=== PATIENT | female | born 1985 | race Asian ===

== ENCOUNTER → 2018-08-04 | Outpatient (CLI) | payer OTHER ==
--- NOTE | 2018-08-04 17:44 | REP ---
LEFT SHOULDER, THREE VIEWS: HISTORY: Pain. There is no acute fracture or dislocation. The joint spaces are normal in appearance. IMPRESSION: There is no acute fracture or dislocation. Electronically Signed by Sky Garrido MD 08/04/2018 05:49 P
== END ==
LOC: M LRY 16:49
PROVIDERS: ATTEND Nurse Practitioner Family
DX: M25.512 Pain in left shoulder (principal)
CPT/HCPCS: 73030; G0463

== ENCOUNTER → 2019-03-18 | Outpatient (CLI) | payer OTHER ==
[2019-03-18 18:59] LABS: BASO % 0.5 % (0.0-1.0); EOS # 0.4 10^3/uL (0.0-0.50); EOS % 6.6 % (0.0-3.0); HEMATOCRIT 38.4 % (36.0-47.0); HEMOGLOBIN 12.4 g/dl (12.0-15.5); LYMPH # 2.1 10^3/uL (1.5-4.5); LYMPH % 35.6 % (24.0-44.0); MEAN CORPUSCULAR HEMOGLOBIN 30.2 pg (27.0-33.0); MEAN CORPUSCULAR HGB CONC 32.3 g/dl (32.0-36.5); MEAN CORPUSCULAR VOLUME 93.7 fl (80.0-96.0); MONO # 0.3 10^3/uL (0.0-0.8); MONO % 4.9 % (0.0-5.0); NEUTROPHILS # 3.1 10^3/uL (1.8-7.7); NEUTROPHILS % 52.2 % (36.0-66.0); PLATELET COUNT, AUTOMATED 194 10^3/uL (150-450); WHITE BLOOD COUNT 5.9 10^3/uL (4.0-10.0)
[2019-03-18 19:14] LABS: ALT/SGPT 19 U/L (12-78); BILIRUBIN,TOTAL 0.5 MG/DL (0.2-1.0); BLOOD UREA NITROGEN 10 MG/DL (7-18); CALCIUM LEVEL 8.9 MG/DL (8.5-10.1); CARBON DIOXIDE LEVEL 29 MEQ/L (21-32); CHLORIDE LEVEL 107 MEQ/L (98-107); CREATININE FOR GFR 0.67 MG/DL (0.55-1.30); FERRITIN 25 NG/ML (8-252); GLOMERULAR FILTRATION RATE > 60.0 (>60); GLUCOSE, FASTING 84 MG/DL (70-100); IRON (FE) 96 UG/DL (50-170); PERCENT SATURATION 31.9 % (13.2-45.0); POTASSIUM SERUM 4.1 MEQ/L (3.5-5.1); SODIUM LEVEL 143 MEQ/L (136-145); THYROID STIMULATING HORMONE 0.659 uIU/ML (0.358-3.740); TOTAL IRON BINDING CAPACITY 301 UG/DL (250-450); TOTAL PROTEIN 7.3 GM/DL (6.4-8.2)
[2019-03-29 00:06] LABS: DQ2(DQ1A 0501/0505,DQB1 02XX) Negative (.); DQ8(DQA1 03XX, DQB1 0302) Positive (.); TISSUE TRANSGLUTAMINASE IgA <2 U/mL (0-3); TISSUE TRANSGLUTAMINASE IgG <2 U/mL (0-5)
== END ==
LOC: M LRY 09:38
PROVIDERS: ATTEND Physician Assistant
DX: D50.9 Iron deficiency anemia, unspecified (principal); K58.0 Irritable bowel syndrome with diarrhea

== ENCOUNTER → 2020-06-25 | Outpatient (REF) | payer OTHER | LOC: M SFHCPLAZ 13:37 | PROVIDERS: ATTEND Obstetrics & Gynecology | DX: Z12.4 Encounter for screening for malignant neoplasm of cervix (principal) ==

== ENCOUNTER → 2020-06-28 | Outpatient (CLI) | payer OTHER ==
--- NOTE | 2020-06-28 13:29 | REP ---
INDICATION: N93.9 ABNORMAL UTERINE BLEEDING. COMPARISON: None. TECHNIQUE: Transabdominal, endovaginal and Doppler pelvic ultrasound. FINDINGS: The uterus is anteverted and normal size measuring 7.4 x 3.3 x 5.6 cm. There is a 2.4 x 1.6 x 1.5 cm complex mass along the posterior uterine wall. This could be a fibroid or could be artifact from adjacent bowel loop. The endometrium is homogeneous and measures 9 mm thickness, this is within the normal range. The right ovary is normal size measuring 2.4 x 2.2 x 2.2 cm. There is no dominant right ovarian mass or cyst. There is vascular flow in the right ovary with the Doppler resistive index in the parenchymal arteries measuring 0.49. The left ovary is normal size measuring 2.8 x 1.5 x 1.8 cm. There is vascular flow in the left lower with the Doppler resistive index in the parenchymal arteries measuring 0.52. However, there is an isoechoic complex left ovarian nodule measuring 1.8 x 1.3 x 1.2 cm. IMPRESSION: Isoechoic 1.8 cm left ovarian nodule, not clearly a cyst. Fibroid versus bowel loop artifact along the posterior uterine wall. <Electronically signed by Domo Sheppard > 06/28/20 1144
== END ==
LOC: M WHC 10:32
PROVIDERS: ATTEND Obstetrics & Gynecology
DX: N93.9 Abnormal uterine and vaginal bleeding, unspecified (principal); N83.9 Noninflammatory disorder of ovary, fallopian tube and broad ligament, unspecified; N85.8 Other specified noninflammatory disorders of uterus

== ENCOUNTER → 2020-06-28 | Outpatient (REF) | payer OTHER ==
[2020-06-28 14:00] LABS: HEMATOCRIT 41.3 % (36.0-47.0); HEMOGLOBIN 13.4 g/dl (12.0-15.5); MEAN CORPUSCULAR HEMOGLOBIN 29.6 pg (27.0-33.0); MEAN CORPUSCULAR HGB CONC 32.4 g/dl (32.0-36.5); MEAN CORPUSCULAR VOLUME 91.4 fl (80.0-96.0); PLATELET COUNT, AUTOMATED 233 10^3/uL (150-450); RED BLOOD COUNT 4.52 10^6/uL (4.00-5.40); WHITE BLOOD COUNT 7.1 10^3/uL (4.0-10.0)
[2020-06-28 14:13] LABS: FREE T4 1.11 NG/DL (0.76-1.46); THYROID STIMULATING HORMONE 0.452 uIU/ML (0.358-3.740)
== END ==
LOC: M PLALAB 11:03
PROVIDERS: ATTEND Obstetrics & Gynecology
DX: N93.9 Abnormal uterine and vaginal bleeding, unspecified (principal)

== ENCOUNTER → 2020-08-13 | Outpatient (REF) | payer OTHER ==
[~2020-08-13] MED LIST: COLA100C5 PO; IBUP80TA PO; OMEP-218 PO; OXYC1TAB23 PO
== END ==
LOC: M SFHCWAGY 13:46
PROVIDERS: ATTEND Obstetrics & Gynecology
DX: N93.9 Abnormal uterine and vaginal bleeding, unspecified (principal)
CPT/HCPCS: 58100; 88305; G0463

== ENCOUNTER → 2020-08-25 | Outpatient (CLI) | payer OTHER ==
[~2020-08-25] MED LIST changes: -COLA100C5 PO; -IBUP80TA PO; -OXYC1TAB23 PO
== END ==
LOC: M LABSMTC 09:09
PROVIDERS: ATTEND Anesthesiology
DX: Z01.812 Encounter for preprocedural laboratory examination (principal); Z20.822 Contact with and (suspected) exposure to COVID-19

== ENCOUNTER 2020-08-30 08:50 | Day surgery (SDC) | payer OTHER ==
[~2020-08-30] VITALS: Ht 162.6 cm; Wt 67.1 kg
[~2020-08-30 08:50] MED LIST changes: +ACETAMINOPHEN 1000MG 100ML IV BTL (OFIRMEV) (J0131 PER 10MG) As Ordered ONE; +BUPIVACAINE HCL 0.25% 30ML VIAL As Ordered ONE; +KETOROLAC 60MG 2ML VIAL As Ordered ONE; +LIDOCAINE 2% 100MG/5ML SDV (FOR ANES.) As Ordered ONE; +LR 1,000 ML IV ONE; +METHYLENE BLUE 0.5% (5MG/ML) 10 ML AMP (PROVAYBLUE) As Ordered ONE; +MIDAZOLAM INJ 2MG/2ML VIAL (J2250 PER 1MG) As Ordered ONE; +ONDANSETRON 4MG/2ML VIAL As Ordered ONE; +ROCURONIUM BROMIDE 50 MG/5 ML VIAL As Ordered ONE; +SUGAMMADEX SODIUM 500 MG/5 ML VIAL (BRIDION) As Ordered ONE; +ceFAZolin SOD 2 GM in IV 1 EA IV ONE; +dexameTHASONE 4 MG/ML 1ML VIAL (J1100 PER 1MG) As Ordered ONE; +fentaNYL 100 MCG/2 ML INJECTION (J3010) As Ordered ONE; +propofoL 200 MG/20 ML VIAL As Ordered ONE
--- OUTSIDE RECORDS SUMMARY | 2020-08-30 08:56 | CCD ---
Author Author [employer] [facility] Organization [employer] [facility] [facility] Address Unknown Phone Unavailable Care Team Providers Care Nutrition Associate Name Role Phone Ranulfo Santacruz Unavailable PROBLEMS Type Condition ICD9-CM Code [id number] Code Onset Dates Condition S tatus SNOMED Code Notes Problem Abnormal uterine bleeding N93.9 Active [id number] ALLERGIES No Known Allergies ENCOUNTERS from 1986 to 2020-07-27 Encounter Location Date Provider Diagnosis [facility] [address] [place] [phone] Jul, Ranulfo Santacruz IMMUNIZATIONS No Information SOCIAL HISTORY Tobacco Use: Social History Observation Description Date Details (start date - stop date) Current Smoker Sex Assigned At : Social History Observation Description Sex Assigned At Unknown Language: Question Answer Notes Languages spoken: amharic, malagasy Alcohol Screening: Question Answer Notes Did you have a drink containing alcohol in the past year? No Points 0 Interpretation Negative Tobacco Use: Question Answer Notes Are you a: current smoker How many cigarettes a day do you smoke? 6-10 Are you interested in quitting? Not ready to quit REASON FOR REFERRAL No Information VITAL SIGNS No information MEDICATIONS Medication SIG (Take, Route, Frequency, Duration) Notes Start Da te End Date Status Voltaren 1 % 2 grams to right ankle Transdermal four times daily for 14 day(s) Jul, Not-Taking Naproxen 500 MG 1 tablet as needed Orally every 12 hrs for 30 da ys Jul, Not-Taking Omeprazole 20 MG 1 capsule 30 minutes before morning meal Orally On ce a day Active PROCEDURES No Information RESULTS No Results REASON FOR VISIT AUTHORIZATION MEDICAL (GENERAL) HISTORY Type Description Date Hospitalization History kidney infection 2017 Goals Section No Information Health Concerns No Information MEDICAL EQUIPMENT No Information MENTAL STATUS No Information FUNCTIONAL STATUS No Information ASSESSMENTS No Information PLAN OF TREATMENT Next Appt Details Provider Name:Ranulfo Santacruz, 08:00:00 AM, [address] [place] [address], [phone], Provider Name:Ranulfo Santacruz, 07:30:00 AM, [address] [place] [address], [phone], Provider Name:Ranulfo Santacruz, 11:40:00 AM, [address] [place] [address], [phone], Provider Name:Ranulfo Santacruz, 08:20:00 AM, [address] [place] [address], [phone], Insurance Providers Payer Name Payer Address Payer Phone Insured Name Patient Relati onship to Insured Coverage Start Date Coverage End Date [address] [phone] CARMELO CASTELLANOS self
--- OUTSIDE RECORDS SUMMARY | 2020-08-30 08:56 | CCD ---
Author Author [facility] Organization [facility] [employer] Address Unknown Phone Unavailable Care Team Providers Care Monitoring Coordinator Name Role Phone Ranulfo Santacruz Unavailable PROBLEMS Type Condition ICD9-CM Code WIF60-DC Code Onset Dates Condition S tatus SNOMED Code Notes Problem Abnormal uterine bleeding N93.9 Active [id number] ALLERGIES No Known Allergies ENCOUNTERS from 1986 to 2020-08-01 Encounter Location Date Provider Diagnosis [facility] [address] [place] [phone] Jul, Ranulfo Santacruz IMMUNIZATIONS No Information SOCIAL HISTORY Tobacco Use: Social History Observation Description Date Details (start date - stop date) Current Smoker Sex Assigned At : Social History Observation Description Sex Assigned At Unknown Language: Question Answer Notes Languages spoken: slovenian, cameroonian Alcohol Screening: Question Answer Notes Did you [...] Information RESULTS No Results REASON FOR VISIT hyster MEDICAL (GENERAL) HISTORY Type Description Date Hospitalization History kidney infection 2017 Goals Section No Information Health Concerns No Information MEDICAL EQUIPMENT No Information MENTAL STATUS No Information FUNCTIONAL STATUS No Information ASSESSMENTS No Information PLAN OF TREATMENT Next Appt Details Provider Name:Ranulfo Santacruz, 08:00:00 AM, [address] [place] [address], [phone], Provider Name:Ranulfo Santacruz, 07:30:00 AM, [address] [place] [address], [phone], Provider Name:Ranulfo Santacruz, 11:40:00 AM, [address] [place] [address], [phone], Provider Name:Raunlfo Santacruz, 08:20:00 AM, [address] [place] [address], [phone], Insurance Providers Payer Name Payer Address Payer Phone Insured Name Patient Relati onship to Insured Coverage Start Date Coverage End Date [address] [phone] CARMELO CASTELLANOS self
--- OUTSIDE RECORDS SUMMARY | 2020-08-30 08:56 | CCD ---
Author Author [employer] Organization [employer] Address Unknown Phone Unavailable Care Team Providers Care Telephone Directory Deliverer Name Role Phone Stephanie Santacruznathan Unavailable PROBLEMS Type Condition ICD9-CM Code QIR69-AF Code Onset Dates Condition S tatus W/U Status Risk SNOMED Code Notes Problem Abnormal uterine bleeding N93.9 Active confirmed [id number] ALLERGIES No Known Allergies ENCOUNTERS from 1986 to 2020-08-28 Encounter Location Date Provider Diagnosis [facility] [address] [place] [phone] Aug, Ranulfo Santacruz IMMUNIZATIONS No Information SOCIAL HISTORY Tobacco Use: Social History Observation Description Date Details (start date - stop date) Current Smoker Sex Assigned At : Social History Observation Description Sex Assigned At Unknown Language: Question Answer Notes Languages spoken: yoruba, yoruba Alcohol Screening: Question Answer Notes Did you [...] Notes Start Da te End Date Status Naproxen 500 MG 1 tablet as needed Orally every 12 hrs for 30 da ys Jul, Not-Taking Omeprazole 20 MG 1 capsule 30 minutes before morning meal Orally On a day Active Voltaren 1 % 2 grams to right ankle Transdermal four times daily for 14 day(s) Jul, Not-Taking PROCEDURES No Information RESULTS No Results REASON FOR VISIT antibiotic? MEDICAL (GENERAL) HISTORY Type Description Date Hospitalization History kidney infection 2017 Goals Section No Information Health Concerns No Information MEDICAL EQUIPMENT No Information MENTAL STATUS No Information FUNCTIONAL STATUS No Information ASSESSMENTS No Information PLAN OF TREATMENT Next Appt Details Provider Name:Ranulfo Santacruz, 08:15:00 AM, [address] [place] [address], [phone], Provider Name:Ranulfo Santacruz, 11:40:00 AM, [address] [place] [address], [phone], Provider Name:Ranulfo Santacruz, 08:20:00 AM, [address] [place] [address], [phone], Insurance Providers Payer Name Payer Address Payer Phone Insured Name Patient Relati onship to Insured Coverage Start Date Coverage End Date [place] [phone] CARMELO CASTELLANOS self
--- OUTSIDE RECORDS SUMMARY | 2020-08-30 08:56 | CCD ---
Author Author [facility] Organization [facility] Address Unknown Phone Unavailable Care Team Providers Care Development Representative Name Role Phone Ranulfo Santacruz Unavailable PROBLEMS Type Condition ICD9-CM Code [id number] Code Onset Dates Condition S tatus SNOMED Code Notes Problem Abnormal uterine bleeding N93.9 Active 388504 [id number] ALLERGIES No Known Allergies ENCOUNTERS from 1986 to 2020-06-27 Encounter Location Date Provider Diagnosis [facility] [address] [place] [phone] Jun, Ranulfo Santacruz Abnormal uterine ble eding N93.9 and Cervical cancer screening Z12.4 IMMUNIZATIONS No Information SOCIAL HISTORY Tobacco Use: Social History Observation Description Date Details (start date - stop date) Current Smoker Sex Assigned At : Social History Observation Description Sex Assigned At Unknown Language: Question Answer Notes Languages spoken: malay, korean Alcohol Screening: Question Answer Notes Did you have a drink containing alcohol in the past year? No Points 0 Interpretation Negative Tobacco Use: Question Answer Notes Are you a: current smoker How many cigarettes a day do you smoke? 6-10 Are you interested in quitting? Not ready to quit REASON FOR REFERRAL No Information VITAL SIGNS Weight 148 lbs Jun, Height 64 in Jun, BMI 25.4 kg/m2 Jun, Blood pressure systolic 98 mm Hg Jun, Blood pressure diastolic 60 mm Hg Jun, MEDICATIONS Medication SIG (Take, Route, Frequency, Duration) [...] Information RESULTS No Results REASON FOR VISIT ANNUAL/FIBROIDS MEDICAL (GENERAL) HISTORY Type Description Date Hospitalization History kidney infection 2017 Goals Section No Information Health Concerns No Information MEDICAL EQUIPMENT No Information MENTAL STATUS No Information FUNCTIONAL STATUS No Information ASSESSMENTS Encounter Date Diagnosis Assessment Notes Treatment Notes Treatm ent Clinical Notes Jun, Abnormal uterine bleeding (ICD-10 - N93.9) Patient was counseled regarding possible etiologies of abnormal uterine bleeding (PALM-COEIN). A comprehensive workup will need to be completed. The full spectrum of treatment options were reviewed (expectant, medical, surgical). The patient expressed being most interested in either Mirena IUD or hysterectomy. She will continue to consider these options. Jun, Cervical cancer screening (ICD-10 - Z12.4) PLAN OF TREATMENT Treatment Notes Assessment Notes Clinical Notes Abnormal uterine bleeding Patient was co unseled regarding possible etiologies of abnormal uterine bleeding (PALM-COEIN). A comprehensive workup will need to be completed. The full spectrum of treatment options were reviewed (expectant, medical, surgical). The patient expressed being most interested in either Mirena IUD or hysterectomy. She will continue to consider these options. Treatment Notes Test Name Order Date CBC - Complete Blood Count 2020-06-27 FREE T4 & TSH PANEL 2020-06-27 [facility] Pelvis non-OB COMPLETE US 2020-06-27 PAP REQUEST FOR SERVICE 2020-06-27 Insurance Providers Payer Name Payer Address Payer Phone Insured Name Patient Relati onship to Insured Coverage Start Date Coverage End Date [place] [phone] CARMELO CASTELLANOS self
--- OUTSIDE RECORDS SUMMARY | 2020-08-30 08:56 | CCD ---
Author Author [facility] Organization [facility] Address Unknown Phone Unavailable Care Team Providers Care Steward/Stewardess [employer] Car Name Role Phone Ranulfo Santacruz Unavailable PROBLEMS Type Condition ICD9-CM Code TPT87-SL Code Onset Dates Condition S tatus W/U Status Risk SNOMED Code Notes Problem Abnormal uterine bleeding N93.9 Active confirmed [id number] ALLERGIES No Known Allergies ENCOUNTERS from 1986 to 2020-08-27 Encounter Location Date Provider Diagnosis [facility] [address] [place] [phone] Jul, Ranulfo Santacruz Abnormal uterine ble eding N93.9 and Uterine leiomyoma D25.9 IMMUNIZATIONS No Information SOCIAL HISTORY Tobacco Use: Social History Observation Description Date Details (start date - stop date) Current Smoker Sex Assigned At : Social History Observation Description Sex Assigned At Unknown Language: Question Answer Notes Languages spoken: maori, thai Alcohol Screening: Question Answer Notes Did you have a drink containing alcohol in the past year? No Points 0 Interpretation Negative Tobacco Use: Question Answer Notes Are you a: current smoker How many cigarettes a day do you smoke? 6-10 Are you interested in quitting? Not ready to quit REASON FOR REFERRAL No Information VITAL SIGNS Weight 149.6 lbs Jul, Height 64 in Jul, BMI 25.68 kg/m2 Jul, Blood pressure systolic 100 mm Hg Jul, Blood pressure diastolic 60 mm Hg Jul, MEDICATIONS Medication SIG (Take, Route, Frequency, Duration) [...] day(s) Jul, Not-Taking PROCEDURES No Information RESULTS Component Value Reference Range Pathology Request For Service Reviewed date:08/20/2020 09:59:03 Interpretation:benign Performing Lab:[facility], [facility] [address] [facility] [id number] , ,[place] [address] GENITOURINARY REASON FOR VISIT ENDO BX & PRE OP SURG 08/30/20 MEDICAL (GENERAL) HISTORY Type Description Date Hospitalization History kidney infection 2017 Goals Section No Information Health Concerns No Information MEDICAL EQUIPMENT No Information MENTAL STATUS No Information FUNCTIONAL STATUS No Information ASSESSMENTS Encounter Date Diagnosis Assessment Notes Treatment Notes Treatm ent Clinical Notes Jul, Abnormal uterine bleeding (ICD-10 - N93.9) Uncomplicated EndoSee/EMBX in-office today. Bleeding, pain, fever, infectious precautions were reviewed. Final pathology will be reviewed with patient once result is available. Advised OTC NSAID or Tylenol for pain control. Jul, Uterine leiomyoma (ICD-10 - D25.9) Risks, benefits, alternatives, and indications of robotic-assisted total laparoscopic hysterectomy, bilateral salpingectomy, and cystoscopy were reviewed. We discussed the distinct possibility of laparotomy to complete this procedure. A minimally invasive approach may be precluded by an inability to manipulate the cervix and uterus, significant abdominopelvic adhesive disease, difficulty controlling bleeding, and/or incidental unintentional injury to surrounding organ or tissue. She was counseled regarding the possibility of needing a blood transfusion, additional procedures to treat unintentional injury, additional hospitalization/IV antibiotics for postoperative infection, or removal of one/both ovaries. She was counseled regarding the possibility of postoperative vaginal cuff dehiscence, which would require another surgery to correct. She understands that she is to adhere to vaginal rest x 8 weeks to minimize the risk of vaginal cuff dehiscence. The plan is for ovarian retention. She was counseled regarding the 5-10% lifetime chance of reoperation on the adnexa in the future (for benign or malignant indications). She was counseled regarding her lifetime risk of ovarian cancer being roughly 1/60. She was counseled that general anesthesia carries its own specific risks to include heart attack, stroke, or . Informed consent was obtained and placed in the chart. PLAN OF TREATMENT Treatment Notes Assessment Notes Clinical Notes Abnormal uterine bleeding Uncomplicated EndoSee/EMBX in-office today. Bleeding, pain, fever, infectious precautions were reviewed. Final pathology will be reviewed with patient once result is available. Advised OTC NSAID or Tylenol for pain control. Uterine leiomyoma Risks, benefits, alt ernatives, and indications of robotic- assisted total laparoscopic hysterectomy, bilateral salpingectomy, and cystoscopy were reviewed. We discussed the distinct possibility of laparotomy to complete this procedure. A minimally invasive approach may be precluded by an inability to manipulate the cervix and uterus, significant abdominopelvic adhesive disease, difficulty controlling bleeding, and/or incidental unintentional injury to surrounding organ or tissue. She was counseled regarding the possibility of needing a blood transfusion, additional procedures to treat unintentional injury, additional hospitalization/IV antibiotics for postoperative infection, or removal of one/both ovaries. She was counseled regarding the possibility of postoperative vaginal cuff dehiscence, which would require another surgery to correct. She understands that she is to adhere to vaginal rest x 8 weeks to minimize the risk of vaginal cuff dehiscence. The plan is for ovarian retention. She was counseled regarding the 5-10% lifetime chance of reoperation on the adnexa in the future (for benign or malignant indications). She was counseled regarding her lifetime risk of ovarian cancer being roughly 1/60. She was counseled that general anesthesia carries its own specific risks to include heart attack, stroke, or . Informed consent was obtained and placed in the chart. Next Appt Details Provider Name:Ranulfo Santacruz, 08:15:00 AM, [address] [place] [address], [phone], Provider Name:Ranulfo Santacruz, 11:40:00 AM, [address] [place] [address], [phone], Provider Name:Ranulfo Santacruz, 08:20:00 AM, [address] [place] [address], [phone], Insurance Providers Payer Name Payer Address Payer Phone Insured Name Patient Relati onship to Insured Coverage Start Date Coverage End Date [place] [phone] CARMELO CASTELLANOS self
--- OUTSIDE RECORDS SUMMARY | 2020-08-30 08:57 | CCD ---
Author Author [facility] Address Unknown Phone Unavailable Support Name Relationship Address Phone UE Next Of Kin Unknown Unavailable LIDIA LEGGETT Next [place] [id number] [place] [address] BETSEY ALEXANDER Next Of Kin Unknown Unavailable Care Team Providers Care Program Officer Name Role Phone Lance, Mi Young PT Unavailable Unavailable Lance, Mi Young PT Unavailable Unavailable Lance, Mi Young PT Unavailable Unavailable Lance, Mi Young PT Unavailable Unavailable Lance, Mi Young PT Unavailable Unavailable Lance, Mi Young PT Unavailable Unavailable Lance, Mi Young PT Unavailable Unavailable Lance, Mi Young PT Unavailable Unavailable Lance, Mi Young PT Unavailable Unavailable Lance, Mi Young PT Unavailable Unavailable Lance, Mi Young PT Unavailable Unavailable Lance, Mi Young PT Unavailable Unavailable Lance, Mi Young PT Unavailable Unavailable Lance, Mi Young PT Unavailable Unavailable Lacne, Mi Young PT Unavailable Unavailable Alnce, Mi Young PT Unavailable Unavailable Lance, Mi Young PT Unavailable Unavailable Lance, Mi Young PT Unavailable Unavailable Lance, Mi Young PT Unavailable Unavailable Lance, Mi Young PT Unavailable Unavailable Lance, Mi Young PT Unavailable Unavailable Lance, Mi Young PT Unavailable Unavailable O'jaxon, A Tobin PA Unavailable Unavailable O'jaxon, A Tobin PA Unavailable Unavailable O'jaxon, A Tobin PA Unavailable Unavailable O'jaxon, A Tobin PA Unavailable Unavailable O'jaxon, A Tobin PA Unavailable Unavailable O'jaxon, A Tobin PA Unavailable Unavailable O'jaxon, A Tobin PA Unavailable Unavailable O'jaxon, A Tobin PA Unavailable Unavailable O'jaxon, A Tobin PA Unavailable Unavailable O'jaxon, A Tobin PA Unavailable Unavailable O'jaxon, A Tobin PA Unavailable Unavailable O'jaxon, A Tobin PA Unavailable Unavailable O'jaxon, A Tobin PA Unavailable Unavailable O'jaxon, A Tobin PA Unavailable Unavailable O'jaxon, A Tobin PA Unavailable Unavailable O'jaxon, A Tobin PA Unavailable Unavailable O'jaxon, A Tobin PA Unavailable Unavailable O'jaxon, A Tobin PA Unavailable Unavailable O'jaxon, A Tobni PA Unavailable Unavailable O'jaxon, A Tobin PA Unavailable Unavailable O'jaxon, A Tobin PA Unavailable Unavailable O'jaxon, A Tobin PA Unavailable Unavailable O'jaxon, A Tobin PA Unavailable Unavailable O'jaxon, A Tobin PA Unavailable Unavailable O'jaxon, A Tobin PA Unavailable Unavailable O'jaxon, A Tobin PA Unavailable Unavailable O'jaxon, A Tobin PA Unavailable Unavailable O'jaxon, A Tobin PA Unavailable Unavailable O'jaxon, A Tobin PA Unavailable Unavailable O'jaxon, A Tobin PA Unavailable Unavailable O'jaxon, A Tobin PA Unavailable Unavailable O'jaxon, A Tobin PA Unavailable Unavailable LAMONT, 0000{ Unavailable Unavailable Re-disclosure Warning The records that you are about to access may contain information from federally-assisted alcohol or drug abuse programs. If such information is present, then the following federally mandated warning applies: This information has been disclosed to you from records protected by federal confidentiality rules (42 CFR part 2). The federal rules prohibit you from making any further disclosure of this information unless further disclosure is expressly permitted by the written consent of the person to whom it pertains or as otherwise permitted by 42 CFR part 2. A general authorization for the release of medical or other information is NOT sufficient for this purpose. The Federal rules restrict any use of the information to criminally investigate or prosecute any alcohol or drug abuse patient.The records that you are about to access may contain highly sensitive health information, the redisclosure of which is protected by Article 27-F of the [facility] Public Health law. If you continue you may have access to information: Regarding HIV / AIDS; Provided by facilities licensed or operated by the [facility] Office of Mental Health; or Provided by the [facility] Office for People With Developmental Disabilities. If such information is present, then the following [facility] mandated warning applies: This information has been disclosed to you from confidential records which are protected by state law. State law prohibits you from making any further disclosure of this information without the specific written consent of the person to whom it pertains, or as otherwise permitted by law. Any unauthorized further disclosure in violation of state law may result in a fine or care home sentence or both. A general authorization for the release of medical or other information is NOT sufficient authorization for further disc losure. Encounters Encounter Providers Location Date Indications Data Source(s ) [place] [address] [facility] [address] 08/20/2020 12:00:00 AM EST eCW1 ([facility]) [place] [address] [facility] [address] 08/13/2020 12:00:00 AM EST eCW1 ([facility]) Unknown [address] [facility] [address] 07/26/2020 12:00:00 AM EST eCW1 ([facility]) Unknown [address] [facility] [address] 07/25/2020 12:00:00 AM EST eCW1 ([facility]) [place] [address] [facility] [address] 06/25/2020 12:00:00 AM EST eCW1 ([facility]) Outpatient Attender: Tommy Lucas PT 09/21/2019 12:35:0 0 PM EST EARLY SATIETY/ ABDOMINAL PAIN/ ABDOMINAL DISTENSION ([facility] EARLY SATIETY/ ABDOMINAL PAIN/ ABDOMINAL DISTENSION (GASEOUS Outpatient Attender: 0000{ LAMONT 09/21/2019 12:35:00 PM E [facility] Outpatient Attender: Tobin VERONICA [facility] 08/16/2019 01:30:00 PM EST MEDENT ([facility]) Medications Medication Brand Name Start Date Product Form Dose Route Admi nistrative Instructions Pharmacy Instructions Status Indications Reaction Description Data Source(s) Famotidine 40 MG Oral Tablet Famotidine 08/16/2019 12:00:00 AM EST ORAL active MEDENT ([facility]) Omeprazole 40 MG Delayed Release Oral Capsule Omeprazole 08/16/2019 12:00:00 AM EST ORAL active MEDENT ([facility]) 24 HR Nicotine 0.292 MG/HR Transdermal Patch Nicotine Step 3 08/16/2019 12:00:00 AM EST active MEDENT ([facility]) Omeprazole 20 MG Delayed Release Oral Capsule Omeprazole 06/20/2019 12:00:00 AM EST ORAL completed MEDENT ([facility]) Insurance Providers Payer name Policy type / Coverage type Policy ID Covered republican ID Covered republican's relationship to peoples Policy Peoples Plan Information [facility] [id number] [facility] [id number] S [id number] Problems, Conditions, and Diagnoses Code Display Name Description Problem Type Effective Dates Data Source(s) N93.9 Abnormal uterine bleeding Abnormal uterine bleeding Pr oblem 06/25/2020 12:00:00 AM EST eCW1 ([facility]) Results ID Date Data Source [id number] 08/25/2020 08:30:00 AM EST [facility] Name Value Range Interpretation Code Description Data Parul rce(s) Supporting Document(s) SARS coronavirus 2 RNA Not Detected [facility] [place] This lab was ordered by [facility] and reported by [facility]. ID Date Data Source Pathology Request For Service 08/13/2020 12:00:00 AM EST eCW 1 ([facility]) Name Value Range Interpretation Code Description Data Parul rce(s) Supporting Document(s) GENITOURINARY eCW1 ([facility]) ID Date Data Source [id number] 02/03/2020 09:09:00 AM EDT [facility] Received: 02/03/2020 at 03:18:00 [facility] [address] [address] [place] [address], [phone] MD Received: 02/03/2020 at 03:18:00 QPT [facility] [address], [address] [place] [address], [phone] MD Received: 02/03/2020 at 03:18:00 QPT [facility] [address], [address] [place] [address], [phone] MD Received: 02/03/2020 at 03:18:00 QPT [facility] [address], [address] [place] [address], [phone] MD Name Value Range Interpretation Code Description Data Parul rce(s) Supporting Document(s) Hepatitis B virus core Ab [Presence] in Serum or Plasm a by Immunoassay NON-REACTIVE NON-REACTIVE Normal (applies to non-numeric results) [facility] ID Date Data Source [id number] 02/03/2020 09:09:00 AM EDT [facility] Received: 02/03/2020 at 03:18:00 QPT : [facility], [address], [address] [place], [phone] MD Received: 02/03/2020 at 03:18:00 QPT : [facility], [address], [address] [place], [phone] MD Received: 02/03/2020 at 03:18:00 QPT : [facility], [address], [address] [place], [address], Ashvin Grace MD Received: 02/03/2020 at 03:18:00 QPT : [facility], [address], [address] [place], [address], Ashvin Grace MD Name Value Range Interpretation Code Description Data Parul rce(s) Supporting Document(s) Hepatitis A virus Ab [Presence] in Serum by Immunoassay NON- REACTIVE NON-REACTIVE Normal (applies to non-numeric results) [facility] For additional information, please refer tohttp://education.TYMR.Altair Prep/faq/CRR916(This link is being provided for informational/educational purposes only.) ID Date Data Source [id number] 02/03/2020 09:09:00 AM EDT [facility] Received: 02/03/2020 at 03:18:00 QPT : [facility] [address], [address] [place], [phone] MD Received: 02/03/2020 at 03:18:00 QPT : [facility] [address], [address] [place], [address]Ashvin MD Received: 02/03/2020 at 03:18:00 QPT : [facility], [address], [address] [place], [address]Ashvin MD Received: 02/03/2020 at 03:18:00 QPT : [facility], [address], [address] [place], [address], Ashvin Grace MD Name Value Range Interpretation Code Description Data Parul rce(s) Supporting Document(s) Hepatitis B virus core IgM Ab [Presence] in Serum or P lasma by Immunoassay NON-REACTIVE NON-REACTIVE Normal (applies to non-numeric results) [facility] ID Date Data Source [id number] 02/03/2020 09:09:00 AM EDT [facility] Received: 02/03/2020 at 03:18:00 QPT [facility] [address], [address] [place] [address], [phone], Ashvin Grace MD Received: 02/03/2020 at 03:18:00 QPT : [facility], [address], [address] [place], [address]Ashvin MD Received: 02/03/2020 at 03:18:00 QPT : [facility], [address], [address] [place] [address], [phone] MD Received: 02/03/2020 at 03:18:00 QPT : [facility], [address], [address] [place], [phone], Ashvin Grace MD Name Value Range Interpretation Code Description Data Parul rce(s) Supporting Document(s) Hepatitis A virus IgM Ab [Presence] in Serum or Plasma by Immunoassay NON-REACTIVE NON-REACTIVE Normal (applies to non-numeric results) [facility] For additional information, please refer tohttp://education.TYMR.Altair Prep/faq/ENP552(This link is being provided for informational/educational purposes only.) ID Date Data Source [id number] 09/21/2019 01:57:00 PM EST [facility] DATE OF EXAM: 09/21/2019ABDOMINAL ULTRAS OUND, COMPLETE CLINICAL HISTORY: Early satiety/ abdominal pain/ abdominal distension (gaseous)/ nausea. COMPARISON: None. TECHNIQUE: Transverse and longitudinal real-time grayscale ultrasound scanning of the abdomen was performed. FINDINGS: Hepatic echogenicity is within normal limits. Hepatic length is approximately 17 cm.No focal hepatic lesion is seen. The common bile duct is within normal limits, measuring approximately 2-3 mm. in diameter. The gallbladder is visualized and is unremarkable with no evidence of gallstones, gallbladder wall thickening or gustavo-cholecystic fluid collection. The spleen is normal in volume and echotexture; no splenic lesion. The visualized portion of the pancreas is unremarkable. The aorta is unremarkable with no evidence of aneurysmal dilation. The inferior vena cava is unremarkable. There is no evidence of ascites. The left and right kidneys are normal in contour with no evidence of hydronephrosis. The right kidney measures approximately 11.5 cm, and the left kidney measures approximately 10.8 cm in length.Renal cortical thickness within normal limits bilaterally. IMPRESSION: Borderline enlarged liver. No focal hepatic lesion. No biliary obstruction, or cholelithiasis. Professional interpretation performed at [facility] .End of diagnostic report for accession: [id number] Interpreted: Thomas Bermudez MDTranscribed: 09/21/2019 01:55 PMSigned: 09/21/2019 01:57 PM Thomas Hunter MD [facility] # [id number] BILL # [id number] [place] Name Value Range Interpretation Code Description Data Parul rce(s) Supporting Document(s) Procedure Social History Code Duration Value Status Description Data Source(s ) Smoking 08/13/2020 12:00:00 AM EST Current Smoker completed Curre nt Smoker eCW1 ([facility]) Smoking 08/13/2020 12:00:00 AM EST Current Smoker completed Curre nt Smoker eCW1 ([facility]) Smoking 06/25/2020 12:00:00 AM EST Current Smoker completed Curre nt Smoker eCW1 ([facility]) Smoking 06/25/2020 12:00:00 AM EST Current Smoker completed Curre nt Smoker eCW1 ([facility]) Smoking 06/25/2020 12:00:00 AM EST Current Smoker completed Curre nt Smoker eCW1 ([facility]) Vital Signs ID Date Data Source UNK Name Value Range Interpretation Code Description Data Source(s) Diastolic blood pressure 60 mm[Hg] 60 mm[Hg] eCW1 ([facility]) Systolic blood pressure 100 mm[Hg] 100 mm[Hg] e CW1 ([facility]) Body mass index (BMI) [Ratio] 25.68 kg/m2 25.68 kg/m2 eCW1 ([facility]) Body height 64 [in_i] 64 [in_i] eCW1 ([facility]) Body weight 149.6 [lb_av] 149.6 [lb_av] eCW1 ([facility]) Diastolic blood pressure 60 mm[Hg] 60 mm[Hg] eCW1 ([facility]) Systolic blood pressure 98 mm[Hg] 98 mm[Hg] e CW1 ([facility]) Body mass index (BMI) [Ratio] 25.4 kg/m2 25.4 k g/m2 [facility] ([facility]) Body height 64 [in_i] 64 [in_i] eCW1 ([facility]) Body weight 148 [lb_av] 148 [lb_av] eCW1 ([facility]) Oxygen saturation in Arterial blood by Pulse oximetry 99 % 99 % [facility] Body temperature 98.7 [degF] 98.7 [degF] MEDENT ([facility]) Respiratory rate 18 /min 18 /min [facility] ( [facility]) Heart rate 82 /min 82 /min MED[facility] ([facility]) Body mass index (BMI) [Ratio] 24.2 kg/m2 24.2 k g/m2 MED[facility] ([facility]) Body weight 142.25 [lb_av] 142.25 [lb_av] MEDEN T ([facility]) Body height 64.3 [in_i] 64.3 [in_i] MEDENT ([facility]) 5'4.30" Diastolic blood pressure 68 mm[Hg] 68 mm[Hg] MEDENT ([facility]) Systolic blood pressure 106 mm[Hg] 106 mm[Hg] Francisco SMITH ([facility])
[2020-08-30 09:21] LABS: HEMATOCRIT 39.3 % (36.0-47.0); HEMOGLOBIN 13.2 g/dl (12.0-15.5); MEAN CORPUSCULAR HEMOGLOBIN 30.1 pg (27.0-33.0); MEAN CORPUSCULAR HGB CONC 33.6 g/dl (32.0-36.5); MEAN CORPUSCULAR VOLUME 89.7 fl (80.0-96.0); PLATELET COUNT, AUTOMATED 191 10^3/uL (150-450); RED BLOOD COUNT 4.38 10^6/uL (4.00-5.40); WHITE BLOOD COUNT 6.2 10^3/uL (4.0-10.0)
[2020-08-30] MEDS ORDERED: HYDROmorphone HCL 2 MG/ML 1ML VIAL (J1170) As Ordered ONE (11:06)
[2020-08-30] MEDS ORDERED: OXYC1TAB23 PO (12:14)
[2020-08-30] MEDS ORDERED: IBUP80TA PO (12:16)
[2020-08-30] MEDS ORDERED: COLA100C5 PO (12:17)
--- NOTE | 2020-08-30 12:19 | ROOPDOC ---
[facility] Report Of Operation Report of Operation DATE OF PROCEDURE: 08/30/2020 PREPROCEDURE DIAGNOSES: Abnormal uterine bleeding, chronic pelvic pain. POSTPROCEDURE DIAGNOSES: Same. PROCEDURE: Robotic-assisted total laparoscopic hysterectomy, bilateral salpingectomy, cystoscopy SURGEON: Ranulfo Santacruz D.O. FACOG CHARGE LPN: Merna Otero ANESTHESIA: General endotracheal. ESTIMATED BLOOD LOSS: Approximately 50 mL. FLUIDS REPLACED: 1100 mL LR URINE OUTPUT: 150 mL COMPLICATIONS: None. FINDINGS: Normal-appearing ovaries bilaterally. Uterus was approximately 10 centimeters in greatest dimension; uterine contour consistent with multiple uterine leiomyomas. .Also of note, patient had evidence of endometriosis locate d in the left uterosacral ligament (incidentally removed during the hysterectomy), and a small area on the dome of the bladder (right side). . No evidence of endometrioma. Cystoscopy: Bilateral ureteral orifice efflux, no bladder injury/suture material. PREOPERATIVE ANTIBIOTIC PROPHYLAXIS: Ancef 2 g IV 1. SPECIMEN(S): Uterus w/ cervix, bilateral fallopian tubes DESCRIPTION OF PROCEDURE: The patient was counseled, consented on the respective benefits, indications, alternatives of procedure. Informed consent was obtained. She was taken to the operating room with an IV running. She was placed on the operating table in dorsal supine position. Gen. anesthesia was administered and the airway was secured without any difficulty. She was placed in the low lithotomy position. . She was prepared and draped in the normal sterile fashion. A time out was performed per protocol. A Unger catheter was placed under sterile conditions. A sterile speculum was placed resulting in good visualization of the cervix. A single-tooth tenaculum was used to grasp the anterior lip cervix. The cervix was sequentially dilated with James dilators. A V-Care uterine manipulator was placed without any difficulty. The single-tooth tenaculum was removed, as well as the speculum. A sterile glove switch was performed. Attention was turned to the abdomen. A 2mm incision was made in the umbilicus, and through this incision a Veress needle was inserted into the intraperitoneal cavity. Intraperitoneal placement was confirmed with ease of flow of normal saline, positive drop test, no return on aspiration, and an opening pressure of less than 10 mmHg upon initial insuf flation. The abdomen was insufflated with 2 L of gas. The Veress needle was removed. A supraumbilical 8 mm incision was made. Through this incision, the robotic trochar/cannula was inserted into the intraperitoneal cavity under direct visualization. No incidental bleeding nor injury was noted. Patient was placed in 30 Trendelenburg. The right and left trocars/cannulas were placed on both the right and left side through 8 mm incisions, guided by laparoscopic visualization. No incidental bleeding nor injury was noted. The robot was docked in typical fashion. The instruments were inserted, guided by laparoscopic visualization. My attention was turned to the robotic console. Using the vessel sealer device, the right and left fallopian tubes were amputated. The fallopian tubes were brought through the assist-port cannula without any difficulty. The right utero-ovarian ligament and right round ligament were sequentially clamped, coagulated and transected with the vessel sealer device. The vesicouterine peritoneum was dissected with the vessel sealer device to create the bladder flap, thus mobilizing the lower uterine segment and cervix off of the bladder. The right uterine vasculature was sequentially clamped, coagulated and transected above the colpotomy cup. The left utero-ovarian ligament and left round ligament were sequentially clamped, coagulated and transected with the vessel sealer device. The remainder of the bladder flap was dissected using the vessel sealer device and blunt dissection. The left uterine vasculature was sequentially clamped, coagulated and transected above the colpotomy cup. The outline of the entire V- care colpotomy cup was able to be delineated. Excellent blanching of the uterus was noted. A circumferential colpotomy was performed using the da Reddy monopolar margie, following the contour of the cup. The amputated cervix and uterus were brought through the colpotomy into and out of the vagina, intact as one unit. The colpotomy was closed with the V-lock barbed suture in running fashion, thus creating the vaginal cuff. Excellent hemostasis was noted throughout the steps above. Feliciano was placed over the vaginal cuff to ensure hemostasis. The instruments were removed from the abdomen and the robot was un-docked. The gas was released from the abdomen and the patient was taken out of Trendelenburg. I re-scrubbed, and attention was turned to the pelvis. The Unger catheter was removed. The cystoscope was placed transurethrally into the bladder and normal saline was instilled. No bladder injury/suture material was noted. IV methylene blue had been administered by anesthesia and bilateral UO efflux was confirmed. The fluid was drained out of the bladder through the cystoscope device, then the cystoscope was removed. The vagina was copiously irrigated. A sterile digital vaginal exam revealed no significant bleeding and an intact vaginal cuff. A sterile glove switch was performed. The da Reddy cannulas were removed. The skin incisions were closed with 4-0 Monocryl in subcuticular fashion. Sponge, needle and instrument counts were correct per protocol. The patient tolerated the entire procedure very well. She was transferred to the PACU in good and stable condition. DO CARLIE Batista JONATHAN R. DO Aug 30, 2020 12:19
[2020-08-30] MEDS ORDERED: ONDANSETRON 4MG/2ML VIAL IV PRN ×2 (12:30→12:45)
[2020-08-30] MEDS ORDERED: PERCOCET 5MG/325MG TAB PO PRN ×3 (12:30→12:45)
[2020-08-30] MEDS ORDERED: LR 1,000 ML IV SCH ×2 (12:30→12:45)
[2020-08-30] MEDS ORDERED: METOCLOPRAMIDE INJ 10MG/2ML VIAL (J2765 PER 1) IV PRN (12:30)
[2020-08-30] MEDS ORDERED: fentaNYL 100 MCG/2 ML INJECTION (J3010) IV PRN (12:30)
[2020-08-30] MEDS ORDERED: MORPHINE 10 MG/ML 1ML VIAL (J2270) IV PRN (12:45)
[2020-08-30] MEDS ORDERED: KETOROLAC 30 MG/ML 1ML VIAL IV PRN (12:45)
[2020-08-30] MEDS ORDERED: diphenhydrAMINE 50MG/ML VIAL (J1200) IV PRN (12:45)
[2020-08-30 13:15] VITALS: BP 107/60
[2020-08-30 13:50] VITALS: BP 108/56
[2020-08-30 14:45] VITALS: BP 116/58
[2020-08-30 15:45] VITALS: BP 109/57
[2020-08-30 16:45] VITALS: BP 104/57
== END 2020-08-30 17:50 | disposition home or self-care (01) ==
LOC: M SDC 08:50 → M PED 13:20 → M SDC 17:50
PROVIDERS: ATTEND Obstetrics & Gynecology
DX: N93.9 Abnormal uterine and vaginal bleeding, unspecified (principal); D25.9 Leiomyoma of uterus, unspecified; N72 Inflammatory disease of cervix uteri; K21.9 Gastro-esophageal reflux disease without esophagitis; Z79.899 Other long term (current) drug therapy; F17.218 Nicotine dependence, cigarettes, with other nicotine-induced disorders
CPT/HCPCS: 36415; 58571; 81025; 85027; 86850; 86900; 86901; 88307; J0131; J0690; J1100; J1170; J1885; J2250; J2405; J3010; Q9968; S2900

== ENCOUNTER → 2020-09-11 | Outpatient (REF) | payer OTHER ==
[~2020-09-11] MED LIST changes: -ACETAMINOPHEN 1000MG 100ML IV BTL (OFIRMEV) (J0131 PER 10MG) As Ordered ONE; -BUPIVACAINE HCL 0.25% 30ML VIAL As Ordered ONE; +COLA100C5 PO; +IBUP80TA PO; -KETOROLAC 60MG 2ML VIAL As Ordered ONE; -LIDOCAINE 2% 100MG/5ML SDV (FOR ANES.) As Ordered ONE; -LR 1,000 ML IV ONE; -METHYLENE BLUE 0.5% (5MG/ML) 10 ML AMP (PROVAYBLUE) As Ordered ONE; -MIDAZOLAM INJ 2MG/2ML VIAL (J2250 PER 1MG) As Ordered ONE; -ONDANSETRON 4MG/2ML VIAL As Ordered ONE; +OXYC1TAB23 PO; -ROCURONIUM BROMIDE 50 MG/5 ML VIAL As Ordered ONE; -SUGAMMADEX SODIUM 500 MG/5 ML VIAL (BRIDION) As Ordered ONE; -ceFAZolin SOD 2 GM in IV 1 EA IV ONE; -dexameTHASONE 4 MG/ML 1ML VIAL (J1100 PER 1MG) As Ordered ONE; -fentaNYL 100 MCG/2 ML INJECTION (J3010) As Ordered ONE; -propofoL 200 MG/20 ML VIAL As Ordered ONE
== END ==
LOC: M SFHCWAGY 12:44
PROVIDERS: ATTEND Advanced Practice Midwife
DX: R30.0 Dysuria (principal)
CPT/HCPCS: 81002; 87086; G0463